=== PATIENT | female | born 1965 | race Asian ===

== ENCOUNTER 2019-07-28 10:51 | Emergency (ER) | payer BC ==
--- NOTE | 2019-07-28 11:32 | ER Document Report ---
HPI - HPI Patient complains to provider of: Sore throat right knee pain Time Seen by Provider: 07/28/19 11:18 Onset: Other Quality of pain: Achy Context: 54-year-old female with history of high blood pressure and stroke presents emergency department with complaints of right knee pain for over a week and sore throat for 2 days. Reports she did go see her primary care provider about her knee and was told to take aspirin. She denies trauma. She has not seen anybody for her sore throat. Denies fever vomiting diarrhea. Has exposure to strep. Associated Symptoms: None Exacerbated by: Walking Relieved by: Denies Similar symptoms previously: Yes Recently seen / treated by doctor: Yes - REPRODUCTIVE Reproductive: DENIES: : Past Medical History - General Information source: Patient - Social History Smoking Status: Unknown if Ever Smoked Cigarette use (# per day): No Frequency of alcohol use: None Drug Abuse: None Lives with: Family Family History: Reviewed & Not Pertinent Patient has suicidal ideation: No Patient has homicidal ideation: No - Past Medical History Cardiac Medical History: Reports: Hx Hypertension Neurological Medical History: Reports: Hx Cerebrovascular Accident - right sided weakness, HTN BLEED 2003--TX'ED AT [facility], [facility], NO SURGERY., Hx Migraine Past Surgical History: Reports: Hx Breast Surgery - CYST BIOPSY, Hx Section - Immunizations Hx Diphtheria, Pertussis, Tetanus Vaccination: No Vertical Provider Document - CONSTITUTIONAL Agree With Documented VS: Yes Exam Limitations: No Limitations General Appearance: WD/WN, No Apparent Distress - INFECTION CONTROL TRAVEL OUTSIDE OF THE [place] IN LAST 30 DAYS: No - HEENT HEENT: Atraumatic, Normocephalic, Pharyngeal Exudate, Pharyngeal Erythema - Tonsillar hypertrophy good airway speaks in a clear voice opens mouth wide no trismus no ludwigs - NECK Neck: Normal Inspection, Supple. negative: Lymphadenopathy-Left, Lymphadenopathy-Right - RESPIRATORY Respiratory: Breath Sounds Normal, No Respiratory Distress - CARDIOVASCULAR Cardiovascular: Regular Rate, Regular Rhythm - GI/ABDOMEN Gastrointestinal: Abdomen Soft - MUSCULOSKELETAL/EXTREMETIES Musculoskeletal/Extremeties: MAEW, FROM, Tender - Reports right knee tender to palpate no obvious deformity no swelling no erythema no warmth - NEURO Level of Consciousness: Awake, Alert, Appropriate Motor/Sensory: No Motor Deficit - DERM Integumentary: Warm, Dry Course - Re-evaluation Re-evalutation: 07/28/19 11:29 54-year-old female presents with complaints of right knee pain for over a week and sore throat for 2 days. Patient does have tonsillar exudate with hypertrophy. Strep test ordered as well as right knee x-ray. 07/28/19 12:38 Knee X-Ray 07/28/19 11:22 IMPRESSION: No acute fracture or malalignment. Small suprapatellar knee joint effusion. Mild medial compartment joint space narrowing. X-ray shows small knee effusion will be placed in Zach wrap instructed to follow- up with orthopedics. Strep +, Will be treated for strep throat with penicillin. Patient verbalized understanding to all instructions. - Vital Signs Vital signs: Temp Pulse Resp BP Pulse Ox 98.4 F 101 H 18 134/79 H 97 07/28/19 11:03 07/28/19 11:03 07/28/19 11:03 07/28/19 11:03 07/28/19 11:03 - Diagnostic Test Radiology reviewed: Image reviewed, Reports reviewed Procedures - Immobilization Right Knee Immobilizer type: Zach wrap Performed by: PCT Post-Proc Neuro Vasc Exam: Unchanged from pre-exam Discharge - Discharge Clinical Impression: Sore throat, Strep throat, Knee effusion, right Right knee pain Qualifiers: Chronicity: acute Qualified Code(s): M25.561 - Pain in right knee Condition: Stable Disposition: HOME, SELF-CARE Instructions: Zach Wrap ([facility]), Use of Smhl-Tis-Vpptadm Ibuprofen ([facility]), Ice & Elevation ([facility]), Knee Effusion ([facility]), Penicillin V K ([facility]), Sore Throat ([facility]), Strep Throat ([facility]) Additional Instructions: *You have been evaluated for right knee pain and sore throat,strep throat, knee effusion *Take medication as prescribed *Gargle with warm salt water use throat lozenges for comfort *Change toothbrush after two days of antibiotics *Do not let anyone drink/eat after you *Good hand washing *Rest/ ice/ elevate your knee, maintain the zach wrap and take ibuprofen as indicated for pain *Follow-up with a primary care provider within 1 week for recheck and referral to orthopedics *Return to ED for worsening condition change, needs Monitor your blood pressure. Your blood pressure was elevated today. This may be because you were anxious, in pain or because you need medication. It is important to follow up with your primary care provider for full evaluation. Prescriptions: Penicillin V Potassium [Penicillin Vk 500 mg Tablet] 500 mg PO BID #20 tablet Forms: Elevated Blood Pressure Referrals: RUCHI MCKEON MD [[facility]ED STAFF] - Follow up in 1 week
--- NOTE | 2019-07-28 12:24 | RADIOLOGY REPORT (SQ) ---
EXAM DESCRIPTION: KNEE RIGHT 4 VIEWS COMPLETED DATE/TIME: 07/28/2019 11:47 am REASON FOR STUDY: knee pain swelling COMPARISON: None. NUMBER OF VIEWS: Four views. TECHNIQUE: AP, lateral, and both oblique radiographic images acquired of the right knee. LIMITATIONS: None. FINDINGS: MINERALIZATION: Normal. BONES: No acute fracture or dislocation. No worrisome bone lesions. JOINT: Small suprapatellar knee joint effusion. Mild medial compartment joint space narrowing and osito ny spurring SOFT TISSUES: No soft tissue swelling. No radio-opaque foreign body. OTHER: No other significant finding. IMPRESSION: No acute fracture or malalignment. Small suprapatellar knee joint effusion. Mild medial compartment joint space narrowing. TECHNICAL DOCUMENTATION: JOB ID: [id number]- All Rights Reserved Reading location - IP/workstation name: [email or web address]
[2019-07-28 13:04] VITALS: BP 125/77
== END 2019-07-28 13:08 | disposition home or self-care (01) ==
LOC: ER 10:51
DX: J02.0 Streptococcal pharyngitis (principal); M25.461 Effusion, right knee; M25.561 Pain in right knee; I10 Essential (primary) hypertension
CPT/HCPCS: 87880; 99283

== ENCOUNTER → 2020-04-07 | Outpatient (CLI) | payer BC | LOC: WI 10:26 | PROVIDERS: ATTEND Physician Assistant | DX: Z12.31 Encounter for screening mammogram for malignant neoplasm of breast (principal) | CPT/HCPCS: 77067 ==